=== PATIENT | female | born 1995 | race Caucasian/White ===

== ENCOUNTER → 2017-01-31 | Outpatient (CLI) | payer MEDICAID ==
[~2017-01-31] MED LIST: ANXIETY MED; BCP TD; MOTRIN 600600 MG/TAB PO; NORCO 325 MG-51 TAB PO; PERCOCET 325 MG1 TA2 PO; PRENATAL PO; PROTONIX 40MG T40 MG PO; UNISOM25 MG PO; VITAMIN B-625 MG PO; ZOFRAN ODT4 MG PO; [UNRECOGNIZED DRUG - REMARK]
== END ==
LOC: OLC 09:57
DX: Z39.1 Encounter for care and examination of lactating mother (principal); Z71.89 Other specified counseling

== ENCOUNTER → 2018-03-08 | Outpatient (CLI) | payer MEDICAID | LOC: COL.RAD 11:11 | DX: R10.84 Generalized abdominal pain (principal) ==

== ENCOUNTER → 2018-03-15 | Outpatient (CLI) | payer MEDICAID | LOC: COL.RAD 08:52 | DX: R93.8 Abnormal findings on diagnostic imaging of other specified body structures (principal) | CPT/HCPCS: A9537; J2805 ==

== ENCOUNTER 2018-03-25 06:47 | Day surgery (SDC) | payer MEDICAID ==
[2018-03-25] VITALS (8 sets, daily range): BP systolic 116–135; BP diastolic 72–80; PULSE 65–88; TEMP 97.5–98.3
[~2018-03-25] VITALS: Ht 160 cm; Wt 85.7 kg
[2018-03-25] MEDS ORDERED: PAXIL 20MG20 MG PO (07:47)
[2018-03-25] MEDS ORDERED: ATIVAN 0.50.5 MG/TAB PO (07:48)
[2018-03-25] MEDS ORDERED: BIRTH CONTROL MED PO (07:49)
[2018-03-25] MEDS ORDERED: ORTHO MICRONO0.35 MG (08:06)
[2018-03-25] MEDS ORDERED: PERCOCET 325 MG1 TA2 PO (11:02)
[2018-03-25] MEDS ORDERED: COLACE 100100 MG/CAP PO (11:03)
== END 2018-03-25 16:12 | disposition home or self-care (01) ==
LOC: SDCO 06:47
DX: O99.619 Diseases of the digestive system complicating pregnancy, unspecified trimester (principal); K81.1 Chronic cholecystitis; K66.0 Peritoneal adhesions (postprocedural) (postinfection); Z3A.00 Weeks of gestation of pregnancy not specified; O99.340 Other mental disorders complicating pregnancy, unspecified trimester; F41.9 Anxiety disorder, unspecified; F32.9 Major depressive disorder, single episode, unspecified
CPT/HCPCS: J0171; J0690; J2270; J2405; J2704; J2765; J3010; J7120

== ENCOUNTER → 2018-04-19 | Outpatient (CLI) | payer MEDICAID ==
[~2018-04-19] MED LIST changes: +ATIVAN 0.50.5 MG/TAB PO; +BIRTH CONTROL MED PO; +COLACE 100100 MG/CAP PO; +ORTHO MICRONO0.35 MG; +PAXIL 20MG20 MG PO
[2018-04-19 15:30] LABS: EOS # 0.2 (0.0-0.7); EOS % 9.5 % (0-4.0); GRAN # 1.3 (1.4-6.5); GRAN % 55.7 % (42.2-75.2); HEMATOCRIT 38.5 % (37.0-47.0); HEMOGLOBIN 13.1 g/dl (12.5-16.0); LYMPH # 0.4 (1.2-3.4); LYMPH % 17.4 % (20.0-51.0); MEAN CELL VOLUME 87 fl (80.0-100.0); MEAN CORPUSCULAR HEMOGLOBIN 30 pg (27.0-31.0); MEAN CORPUSCULAR HGB CONC 34 g/dl (33.0-37.0); MEAN PLATELET VOLUME 10.3 fl (7.4-10.4); MONO # 0.4 (0.1-0.6); MONO % 17.4 % (1.7-9.3); PLATELET COUNT 176 K/mm3 (130-400); RED BLOOD COUNT 4.43 M/mm3 (4.10-5.30); REDCELL DISTRIBUTION WIDTH-CV 11.8 % (11.5-14.5)
[2018-04-19 15:39] LABS: BILIRUBIN,TOTAL 0.3 mg/dL (0.0-1.0); CALCIUM 8.7 mg/dL (8.4-10.2); CREATININE, serum 0.53 mg/dL (0.52-1.25); POTASSIUM 3.4 mmol/L (3.4-5.0); TOTAL PROTEIN 7.2 gm/dL (6.4-8.2)
[2018-04-19 15:42] LABS: ALBUMIN 3.5 gm/dL (3.5-5.0)
== END ==
LOC: COL.LAB 14:42
PROVIDERS: Surgery
DX: R11.0 Nausea (principal); R68.83 Chills (without fever); Z90.49 Acquired absence of other specified parts of digestive tract

== ENCOUNTER 2018-05-15 09:31 | Day surgery (SDC) | payer MEDICAID ==
[2018-05-15] VITALS (7 sets, daily range): BP systolic 99–112; BP diastolic 52–68; PULSE 76–94; TEMP 98.3–98.8
[~2018-05-15] VITALS: Ht 160 cm; Wt 84.5 kg
== END 2018-05-15 14:40 | disposition home or self-care (01) ==
LOC: SDCO 09:31 → COL.RAD 11:15 → SDCO 11:30
DX: O02.1 Missed abortion (principal); F41.9 Anxiety disorder, unspecified; E66.9 Obesity, unspecified; Z90.49 Acquired absence of other specified parts of digestive tract; Z68.39 Body mass index [BMI] 39.0-39.9, adult; Z87.891 Personal history of nicotine dependence; Z80.0 Family history of malignant neoplasm of digestive organs; Z80.1 Family history of malignant neoplasm of trachea, bronchus and lung
CPT/HCPCS: J0690; J1885; J2210; J2250; J2270; J2405; J2704; J2791; J3010; J7120